=== PATIENT | female | born 1970 | race Caucasian/White ===

== ENCOUNTER 2016-07-19 10:00 | Day surgery (SDC) | payer OTHER ==
--- NOTE | ~2016-07-19 | OP ---
Record Of Operation [facility] [address] [place]. [address] NAME: DIYA MINAYA : 70 STATUS : PRE [facility] [place] PAT#: [id number] AGE: 46 ADM/REG DATE : MR#: [id number] REPORT SERV DATE: 07/19/16 DICTATED BY: BETO CHILDERS DATE: 07/19/16 REPORT STATUS : Draft TRANSCRIBED BY: MODL DATE: 07/19/16 DATE OF PROCEDURE: 07/19/2016 PREOPERATIVE DIAGNOSIS: Subcutaneous lipoma, left upper inner arm. POSTOPERATIVE DIAGNOSIS: Subcutaneous lipoma, left upper inner arm. PROCEDURE: Excision of subcutaneous lipoma. DESCRIPTION OF OPERATIVE PROCEDURE: The patient was brought to the operating suite, placed in supine position, underwent satisfactory monitored anesthetic care. The skin of the left upper arm was scrubbed, prepped, and draped in usual sterile fashion. 0.5% Marcaine with epinephrine was utilized as supplemental local anesthesia. An axial linear incision was performed over the lipoma, dissecting through the subcutaneous tissue with assurance of hemostasis using a combination of blunt and cautery dissection. The lipoma was dissected free from the surrounding fibrofatty tissue and removed completely. Subcutaneous tissue was irrigated and closed subcutaneously with interrupted 3-0 Vicryl and then a running subcuticular stitch of 4-0 Vicryl. Dermabond skin adhesive placed. The patient tolerated the procedure well and was returned to PACU in stable condition. At the termination of the procedure, sponge, needle, lap, and instrument counts were correct x3. ESTIMATED BLOOD LOSS: Negligible. EDGARDO/ZEESHAN Beto Childers M.D. / [id number] CC: Barbara Bates M.D.
[2016-07-19 07:01] LABS: HEMATOCRIT 42.9 % (36.0-48.0)
[~2016-07-19 10:00] MED LIST: FLAXSEED OIL1000 MG PO; VITAMIN D31000 UNIT PO; ZYRTEC ALLGY10 MG PO
== END 2016-07-19 23:59 | disposition home or self-care (01) ==
LOC: SDC 10:00
PROVIDERS: Specialist
PROC: 0JBF0ZZ Excision of Left Upper Arm Subcutaneous Tissue and Fascia, Open Approach (ICD-10-PCS; principal; 2016-07-19 07:45)
DX: D17.22 Benign lipomatous neoplasm of skin and subcutaneous tissue of left arm (principal); T75.3XXA Motion sickness, initial encounter; Z88.1 Allergy status to other antibiotic agents; K21.9 Gastro-esophageal reflux disease without esophagitis; G47.33 Obstructive sleep apnea (adult) (pediatric); Z88.2 Allergy status to sulfonamides; Z79.899 Other long term (current) drug therapy
CPT/HCPCS: 84703; 85014; 85018; 88304; A9270-GY; J0690; J2250; J2405; J3010